=== PATIENT | female | born 1990 | race Hispanic/Latino ===

== ENCOUNTER 2017-11-17 12:08 | Emergency (ER) | payer BC ==
[2017-11-17] MEDS ORDERED: ACETAMINOPHEN EXTRA STRENGTH 500 MG TABLET ONE (12:29)
== END 2017-11-17 13:15 | disposition home or self-care (01) ==
LOC: EDH 12:08
DX: S83.8X2A Sprain of other specified parts of left knee, initial encounter (principal); Z98.890 Other specified postprocedural states; W18.39XA Other fall on same level, initial encounter; Y93.89 Activity, other specified; Y92.89 Other specified places as the place of occurrence of the external cause; Y99.8 Other external cause status
CPT/HCPCS: 73562